=== PATIENT | female | born 1965 | race Caucasian/White ===

== ENCOUNTER → 2017-05-09 | Outpatient (CLI) | payer OTHER ==
[~2017-05-09] MED LIST: ALBUTEROL-200 PUFFS/ IH; ASPIRIN 81MG TA81 MG PO; BUSPAR 10MG TAB10 MG PO; CLARINEX D PO; CLARINEX-D 24 H1 T24 PO; CLARITIN 10MG T10 MG PO; CLARITIN10 MG PO; CYMBALTA60 MG PO; FLEXERIL10 MG PO; FLONASE 50 MCG16 GM; HYDROCODONE BIT1 T39 PO; IBUPROFEN800 MG PO; LEVSIN0.125 MG PO; LORTAB 500 MG-71 TAB PO; LORTAB 7.5/3251 TAB PO; LYRICA 100 MG100 MG PO; MAVIK1 MG PO; MEDROL 4MG. DOSE4 MG PO; MYSOLINE50 M1 PO; NERVE MED PO; PRAVASTATIN 40M40 MG PO; PROAIR HFA0.09 MG/AC IH; SERAX 10MG CAPS10 MG PO; SERAX10 MG PO; TIZANIDINE HCL 44 MG PO; TRAZADONE HYDR100 MG PO; VENLAFAXINE HCL50 MG PO; VICODIN 7.5/501 EACH PO; VISTARIL25 MG PO; [UNRECOGNIZED DRUG - REMARK] PO
--- NOTE | 2017-05-10 09:04 | RADIOLOGY REPORT PS360 ---
US ULTRASOUND THYROID PROCEDURE: Multiple sagittal & transverse ultrasound images of the thyroid. HISTORY: Nate's thyroiditis abnormal labs. Fatigue. COMPARISON: ----- FINDINGS: RIGHT LOBE: 4.3 cm x 1.8 cm x 1.5 cm Nodule A: Vague solid nodule upper pole right lobe 8.1 mm Nodule B: Vague up to 7.4 mm solid nodule mid right lobe. Nodule C: Vague 11 mm x 5.5 mm nodule along the posterior aspect lower pole right lobe cm LEFT LOBE: 4 cm length x 1.4 cm Nodule A: 7 mm X 6.3 mm vague solid nodule mid to upper left lobe Nodule B: 7.7 mm solid nodule posterior lower left lobe . ISTHMUS: Thickened appearance measuring up to 7 mm AP IMPRESSION Thickened isthmus with borderline mildly enlarged right lobe thyroid. Right lobe slightly larger than left Scattered vague areas/nodules throughout right and left lobe of likely reflecting regions of Nate's thyroiditis involvement. No prominent nor dominant nor significant suspicious nodule identified
== END ==
LOC: RAD 10:23
DX: E06.3 Autoimmune thyroiditis (principal)

== ENCOUNTER → 2017-05-24 | Outpatient (CLI) | payer OTHER | LOC: RT 13:51 | DX: G47.10 Hypersomnia, unspecified (principal); I10 Essential (primary) hypertension; R06.83 Snoring ==

== ENCOUNTER → 2017-06-07 | Day surgery (SDC) | payer OTHER ==
[2017-06-07 08:19] LABS: LYMPH # 3.4 K/mm3 (0.7-4.5); LYMPH % 39.7 % (10-50.0)
[2017-06-07 08:27] LABS: BUN 14 mg/dL (7-18)
[2017-06-07 08:30] LABS: GFR (ESTIMATED) 76 ML/MIN (59-); HEMOGLOBIN 13.2 g/dL (12.2-16.2)
[2017-06-07 13:54] VITALS: BP 155/63
--- NOTE | 2017-06-07 14:11 | RADIOLOGY REPORT PS360 ---
CARDIAC CATHETERIZATION DATE OF CATHETERIZATION:06/07/2017 10:02 AM PROCEDURES: 1. Left heart catheterization 2. Left ventriculogram 3. Selective coronary angiogram INDICATION FOR TEST: 1. Angina pectoris class III Informed consent was obtained prior to the procedure. COMPLICATIONS: None ESTIMATED BLOOD LOSS: Less than 10 ml. TECHNIQUE: One percent lidocaine used to anesthetize the right anterior aspect of the wrist. The right radial artery was accessed via the Seldinger technique. A 6 Japanese sheath was placed in the right radial artery. 2.5 mg of verapamil, 800 mcg of nitroglycerin and 5000 U Heparin were given through the arterial sheath. The Keara catheter was also used to perform left heart catheterization and left ventriculography. At the end of the procedure the patient was transferred to the post-op holding area in stable condition for arterial sheath removal. ANGIOGRAPHIC RESULTS: 1. The left main artery normal 2. The left anterior descending artery normal 3. The circumflex artery dominant normal 4. The right coronary artery normal 5. The ORTIZ ventriculogram reveals normal 65% 6. The left ventricular end-diastolic pressure 30 mmHg IMPRESSION: 1. Normal coronary arteries. 2. Normal ejection fraction 3. Moderate to severely elevated LVEDP PLAN: 1. Patient requires diuresis. Her symptoms appear to be coming from diastolic congestive heart failure
== END ==
LOC: CATHLAB 06-03 09:45
PROVIDERS: Internal Medicine
PROC: B2111ZZ Fluoroscopy of Multiple Coronary Arteries using Low Osmolar Contrast (ICD-10-PCS; 2017-06-07)
PROC: B2151ZZ Fluoroscopy of Left Heart using Low Osmolar Contrast (ICD-10-PCS; 2017-06-07)
PROC: 4A023N7 Measurement of Cardiac Sampling and Pressure, Left Heart, Percutaneous Approach (ICD-10-PCS; principal; 2017-06-07 11:30)
DX: R07.9 Chest pain, unspecified (principal); I50.30 Unspecified diastolic (congestive) heart failure; I20.9 Angina pectoris, unspecified
CPT/HCPCS: C1725; C1769; J1644; Q9967

== ENCOUNTER 2017-06-17 10:22 | Day surgery (SDC) | payer OTHER ==
--- NOTE | 2017-06-17 12:47 | Operative Note ---
Colonoscopy ([facility]) Procedure date: 06/17/17 Date of : 65 Procedure:Colonoscopy Colonoscopy with cold biopsies Indications: Mrs. Stoddard is a 51-year-old female who is here for follow-up colonoscopy. The patient has had a history of IBS with diarrhea and bowel urgency. This has worsened in the last few months and she has had at least 2 or 3 accidents with fecal incontinence in the last month. She has moderate gassiness and bloating. 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 She also has a history of H. pylori. She was last seen for me for a colonoscopy 7 years ago. She does state that her maternal aunt and maternal grandfather had colon cancer. She reports no significant abdominal pain or weight loss. She has had no rectal bleeding. Performing Provider: Froylan Quintanilla MD Referrring Provider: Orville Dyson M.D. Sedation: Fentanyl 200 mg IV/Versed 10 mg IV Procedure: Prior to the procedure, a history and physical exam was performed, and patient medications and allergies were reviewed. The risks and benefits of the procedure and the sedation options and risks were discussed with the patient. All questions were answered and informed consent was obtained. Patient identification and proposed procedure were verified by the physician and the nurse. The patient was placed in a left lateral decubitus position. Throughout the procedure, the patient's blood pressure, pulse, and oxygen saturations were monitored continuously. Findings: On digital rectal examination there was normal rectal tone. There were no external hemorrhoids. The colonoscope was introduced through the anal canal to the rectum and advanced to the cecum. The ileocecal valve and appendiceal orifice were identified. The scope was advanced a short distance into the ileum which appeared grossly normal. The scope was then withdrawn into the colon. The cecum, ascending, transverse, descending, sigmoid and rectum were grossly normal. Cold biopsies were taken from the RIGHT colon to rule out microscopic colitis. There were no mucosal abnormalities identified. Upon retroflexion within the rectum there were grade 1 internal hemorrhoids. Impressions: 1. Normal colonoscopy with intubation of the terminal ileum 2. Grade 1 internal hemorrhoids Recommendations: I will follow up the biopsies. 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 I will follow-up the biopsies. If the biopsies show no evidence of microscopic colitis, I would consider Viberzi especially if antispasmodic therapy fails. I will have her follow-up for repeat surveillance colonoscopy in 5 years based upon her family history. I will have her follow-up in the office with Marisol TABOR in 8-12 weeks. Complications: None EBL (ml): 0 at 1247
[2017-06-17 13:56] VITALS: BP 102/58
[2017-06-21] MEDS ORDERED: BISOPROLOL FUMA10 MG PO (11:51)
[2017-06-21] MEDS ORDERED: SYNTHROID0.025 MG PO (11:52)
[2017-06-21] MEDS ORDERED: LASIX 40MG. TAB40 MG PO (11:52)
[2017-06-21] MEDS ORDERED: ALDACTONE 25MG25 MG NG (11:52)
[2017-06-21] MEDS ORDERED: LIBRAX CAPSULE1 EACH PO (11:52)
== END 2017-06-17 13:29 | disposition home or self-care (01) ==
LOC: SDC 10:22
PROVIDERS: Internal Medicine Gastroenterology
PROC: 0DJD8ZZ Inspection of Lower Intestinal Tract, Via Natural or Artificial Opening Endoscopic (ICD-10-PCS; principal; 2017-06-17 11:30)
DX: Z12.11 Encounter for screening for malignant neoplasm of colon (principal); K64.0 First degree hemorrhoids; K58.0 Irritable bowel syndrome with diarrhea